=== PATIENT | female | born 1950 | race Caucasian/White ===

== ENCOUNTER → 2020-04-25 | Outpatient (CLI) | payer MEDICARE ==
[~2020-04-25] MED LIST: IOPAMIDOL 370 MG/ML 200 ML INFUS..BTL INJ ONE; SODIUM CHLORIDE 0.9% 50ML 50 ML ONE
[2020-04-25 08:51] LABS: BLOOD UREA NITROGEN 14 mg/dL (7-26); BUN/CREATININE RATIO 20 (6-25); CREATININE, SERUM 0.71 mg/dL (0.57-1.11); EST GLOMERULAR FILTRATION RATE > 60 ML/MIN (60-)
--- NOTE | 2020-04-25 10:46 | Diagnostic Imaging Report ---
CT of the abdomen and pelvis, without with contrast. History: Left renal mass. Comparison: None available. Technique: Multidetector CT scanning of the abdomen and pelvis was performed before and after the administration of intravenous contrast material according to the renal mass protocol. Coronal and sagittal reformats were reviewed. RADIATION DOSE: Total DLP: 1941.51 mGy*cm Dose modulation, iterative reconstruction, and/or weight based adjustment of the mA/kV was utilized to reduce the radiation dose to as low as reasonably achievable. FINDINGS: The visualized intrathoracic contents demonstrate no significant abnormalities. The liver is normal in size and attenuation without evidence for focal abnormality. The gallbladder is unremarkable. There is no biliary ductal dilatation. The stomach, spleen, pancreas, and bilateral adrenal glands are unremarkable. The kidneys are normal in size and location and enhance symmetrically. There is a lobular, cystic lesion identified within the superior pole the left kidney measuring 3.5 x 4.2 x 3.8 cm which contains thin internal septations and mildly thickened wall. There is questionable enhancement of the internal septations/rhoades. No definite focal nodular enhancement is appreciated. Additional subcentimeter nonenhancing hypodensities are identified bilaterally likely reflecting small cysts. There is no evidence for shadowing stones or hydronephrosis. The kidneys excrete contrast material symmetrically. There is a single ureter and collecting system bilaterally. No ureteral dilatation, filling defect, or other abnormality is identified. The urinary bladder demonstrates no significant abnormalities. The uterus and adnexa are grossly unremarkable. The abdominal aorta is normal in course and caliber. There is a single renal artery bilaterally which remain patent. Atherosclerotic plaquing noted at the origin of the left renal artery. The IVC is unremarkable. Bilateral renal veins are patent and unremarkable. Please note evaluation of bowel is limited without the use of enteric contrast material. The visualized loops of small and large bowel demonstrate no evidence of obstruction or inflammation. The appendix is visualized and appears unremarkable. There is no ascites or intraperitoneal free air. No abnormally enlarged lymph nodes are identified within the abdomen or pelvis. There is a tiny fat-containing umbilical hernia present. The osseous structures demonstrate no evidence for acute fracture or destructive process. The extraperitoneal soft tissues are unremarkable. IMPRESSION: Mildly complicated cystic lesion identified within the superior pole of left kidney measuring up to 4.2 cm. No prior examinations are available for comparison, recommend comparison with prior imaging if available. In the absence of prior imaging, recommend follow-up examination in 3-6 months given mild wall thickening, internal septations, and questionable wall/septation enhancement. Signed by: Dr. Ciro Hughes MD on 04/25/2020 10:43 AM
== END ==
LOC: CT 07:54
PROVIDERS: ATTEND Urology
DX: D41.02 Neoplasm of uncertain behavior of left kidney (principal)
CPT/HCPCS: 36415; 74178; 82565; 84520; Q9967